=== PATIENT | female | born 1990 | race Caucasian/White ===

== ENCOUNTER 2019-10-24 15:19 | Emergency (ER) | payer OTHER ==
--- NOTE | 2019-10-24 16:17 | ED Physician Documentation ---
History of Present Illness - Stated complaint Stated Complaint: F - Chief complaint Chief Complaint: General - History obtained from History obtained from: Patient - History of Present Illness Timing: How many weeks ago (1) Pain level max: 0 Pain level now: 0 - Treatment prior to arrival Treatment prior to arrival: 29-year-old female presents to the emergency department stating that she has had vaginal discharge for the past week. Took Monistat without relief. She states that it is foul-smelling. Nothing makes it better or worse. No changes in sexual partners. She does have an IUD in place that she has had for approximately 5 years. She is having vaginal bleeding as well. States her LMP was 2 weeks ago and this is abnormal for her. Not having pelvic pain. No abdominal pain. No back pain. Review of Systems Constitutional: denies: Fever, Chills Nose: denies: Rhinorrhea / runny nose, Congestion Throat: denies: Sore throat GI: denies: Nausea, Vomiting, Diarrhea : denies: Dysuria, Frequency, Hesitancy Skin: denies: Rash Musculoskeletal: denies: Neck pain, Back pain Neurologic: denies: Headache PD PAST MEDICAL HISTORY - Past Medical History Past Medical History: No - Past Surgical History Past Surgical History: No - Present Medications Home Medications: Ambulatory Orders Medication Instructions Recorded Confirmed Benzonatate [Tessalon] 100 mg PO TID PRN #20 capsule 08/26/15 guaiFENesin/DEXTROMETHORPHAN 10 ml PO Q6H PRN #120 ml 08/26/15 [Robitussin Dm] Doxycycline Hyclate 100 mg PO BID #28 capsule 10/24/19 metroNIDAZOLE [Flagyl] 500 mg PO BID #14 tablet 10/24/19 - Allergies Allergies/Adverse Reactions: Allergies Allergy/AdvReac Type Severity Reaction Status Date / Time erythromycin base Allergy Hives Verified 10/24/19 15:30 - Living Situation Living Situation: reports: With family Living Arrangement: reports: At home - Social History Does the pt smoke?: No Does the pt have substance abuse?: No PD ED PE NORMAL - Vitals Vital signs reviewed: Yes - General General: Alert and oriented X 3, No acute distress, Well developed/nourished - HEENT HEENT: PERRL, Moist mucous membranes - Neck Neck: Supple, no meningeal sign - Cardiac Cardiac: RRR, Strong equal pulses - Respiratory Respiratory: No respiratory distress, Clear bilaterally - Abdomen Abdomen: Soft, Non tender, Non distended - Female 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 Normal-appearing cervix. No CMT. No masses.) - Back Back: No CVA TTP, No spinal TTP - Derm Derm: Warm and dry, No rash - Extremities Extremities: No edema - Neuro Neuro: Alert and oriented X 3 - Psych Psych: Normal mood, Normal affect Results - Vitals Vitals: Vital Signs - 24 hr 10/24/19 10/24/19 15:24 17:53 Temperature 37.3 C 37.2 C Heart Rate 68 54 L Respiratory 16 16 Rate Blood Pressure 117/54 L 123/96 H O2 Saturation 100 100 Oxygen O2 Source Room air - Labs Labs: Microbiology 10/24/19 16:18 Wet Prep - Final Genital - Vaginal Laboratory Tests 10/24/19 10/24/19 16:10 16:30 Urine Color YELLOW Urine Clarity CLEAR Urine pH 6.5 Ur Specific [place] <=1.005 Urine Protein NEGATIVE Urine Glucose (UA) NEGATIVE Urine Ketones NEGATIVE Urine Occult Blood TRACE-INTA Urine Nitrite NEGATIVE Urine Bilirubin NEGATIVE Urine Urobilinogen 0.2 (NORMAL) Ur Leukocyte Esterase NEGATIVE Ur Microscopic Review NOT INDICATED Urine Culture Comments NOT INDICATED Urine HCG, Qual NEGATIVE C. glabrata (PCR) NEGATIVE C. krusei (PCR) NEGATIVE Marzena species DNA NEGATIVE T. vaginalis (PCR) NEGATIVE Bact Vaginosis (PCR) POSITIVE A PD MEDICAL DECISION MAKING - ED course Complexity details: reviewed results, re-evaluated patient, considered differential, d/w patient ED course: Patient with what appears to be bacterial vaginitis. We will treat this with Flagyl. Concern for possible coinfection given her exam. Given Rocephin and doxycycline. She request that her IUD be removed. This was performed. She tolerated this well. She understands that she will need to use a backup method of control. The Mirena device that was removed has been in place for over 5 years already. Patient counseled regarding signs and symptoms for which I believe and urgent re-evaluation would be necessary. Patient with good understanding of and agreement to plan and is comfortable going home at this time This document was made in part using voice recognition software. While efforts are made to proofread this document, sound alike and grammatical errors may occur. Departure - Departure Disposition: 01 Home, Self Care Clinical Impression: Encounter for IUD removal, Vaginal discharge, Dysfunctional uterine bleeding, Bacterial vaginitis Condition: Good Instructions: ED Bleed Irregular Vaginal Follow-Up: Your,doctor in 1 week [Other] Prescriptions: Doxycycline Hyclate 100 mg PO BID #28 capsule metroNIDAZOLE [Flagyl] 500 mg PO BID #14 tablet Comments: Use the medications as prescribed. Return if you worsen. Follow-up with your doctor for further care. Your IUD was removed today. You will need to use another form of control so that you do not become . Discharge Date/Time: 10/24/19 18:04
[2019-10-24 16:36] LABS: BILIRUBIN,URINE NEGATIVE (NEGATIVE); CLARITY,URINE CLEAR (CLEAR); GLUCOSE, URINE (UA) NEGATIVE (NEGATIVE); KETONES,URINE (UA) NEGATIVE (NEGATIVE); LEUKOCYTE ESTERASE, URINE NEGATIVE (NEGATIVE); NITRITE,URINE NEGATIVE (NEGATIVE); OCCULT BLOOD,URINE TRACE-INTA (NEGATIVE); PH,URINE 6.5 PH (5.0-7.5); PROTEIN,URINE NEGATIVE (NEGATIVE); UROBILINOGEN,URINE 0.2 (NORMAL) E.U./dL (NORMAL)
[2019-10-24 16:37] LABS: HCG UR QUAL NEGATIVE
[2019-10-24] MEDS ORDERED: cefTRIAXone 250 MG VIAL IM STA (17:22)
[2019-10-24] MEDS ORDERED: DOXYCYCLINE 100 MG TABLET PO STA (17:22)
[2019-10-24] MEDS ORDERED: LIDOCAINE 1% 2 ML VIAL MC ONE (17:22)
[2019-10-24] MEDS ORDERED: metroNIDAZOLE 250 MG TABLET PO STA (17:22)
[2019-10-24 17:54] VITALS: BP 123/96
[2019-10-24 18:07] LABS: CANDIDA GROUP DNA NEGATIVE (NEGATIVE); CANDIDA KRUSEI DNA NEGATIVE (NEGATIVE); TRICHOMONAS VAGINALIS DNA NEGATIVE (NEGATIVE)
[2019-10-24 23:34] LABS: TRICHOMONAS VAGINALIS DNA UNRESOLVED (NEGATIVE)
== END 2019-10-24 18:04 | disposition home or self-care (01) ==
LOC: ED 15:19
DX: N76.0 Acute vaginitis (principal); N93.8 Other specified abnormal uterine and vaginal bleeding; Z30.432 Encounter for removal of intrauterine contraceptive device
CPT/HCPCS: 58301; 81003; 81025; 87210; 87481; 87491; 87591; 87661; 87801; 96372; 99283; 99284; A9270; 81001; 87086

== ENCOUNTER 2022-11-21 08:05 | Emergency (ER) | payer OTHER ==
[2022-11-21] MEDS ORDERED: ONDANSETRON ODT 4 MG TABLET TL STA (08:17)
[2022-11-21 09:02] LABS: BASOPHILS % (AUTO) 0.8 %; EOSINOPHILS # (AUTO) 0.1 10^3/uL (0.0-0.7); EOSINOPHILS % (AUTO) 1.7 %; HCT - HEMATOCRIT 39.6 % (37.0-47.0); HGB - HEMOGLOBIN 12.8 g/dL (12.0-16.0); LYMPHOCYTES # (AUTO) 1.7 10^3/uL (1.5-3.5); LYMPHOCYTES % (AUTO) 31.8 %; MEAN CORPUSCULAR HEMOGLOBIN 29.9 pg (27.0-31.0); MEAN CORPUSCULAR HGB CONC 32.3 g/dL (32.0-36.0); MEAN CORPUSCULAR VOLUME 92.5 fL (81.0-99.0); MEAN PLATELET VOLUME 9.6 fL (7.9-10.8); MONOCYTES # (AUTO) 0.4 10^3/uL (0.0-1.0); MONOCYTES % (AUTO) 6.6 %; NEUTROPHILS # (AUTO) 3.1 10^3/uL (1.5-6.6); NEUTROPHILS % (AUTO) 58.9 %; PLT - PLATELET COUNT 284 10^3/uL (130-450); RED BLOOD COUNT 4.28 10^6/uL (4.20-5.40); RED CELL DISTRIBUTION WIDTH 11.9 % (12.0-15.0); WHITE BLOOD COUNT 5.3 x10^3/uL (4.8-10.8)
[2022-11-21 09:04] LABS: BILIRUBIN,URINE NEGATIVE (NEGATIVE); GLUCOSE, URINE (UA) NEGATIVE (NEGATIVE); KETONES,URINE (UA) NEGATIVE (NEGATIVE); LEUKOCYTE ESTERASE, URINE NEGATIVE (NEGATIVE); NITRITE,URINE NEGATIVE (NEGATIVE); OCCULT BLOOD,URINE MODERATE (NEGATIVE); PROTEIN,URINE TRACE mg/dL (NEGATIVE); UROBILINOGEN,URINE 0.2 (NORMAL) E.U./dL (NORMAL)
[2022-11-21 09:06] LABS: CLARITY,URINE CLEAR (CLEAR)
[2022-11-21 09:12] LABS: BACTERIA,URINE Rare /HPF (None Seen); MUCUS,URINE Marked Strands; RBC,URINE TNTC /HPF (0-5); SQUAMOUS EPITHELIAL CELL,UR FEW Squamous (<= Few)
[2022-11-21 09:15] LABS: ALBUMIN 4.1 g/dL (3.2-5.5); ALBUMIN/GLOBULIN RATIO 1.4 (1.0-2.2); BILIRUBIN,TOTAL 0.5 mg/dL (0.2-1.0); CALCIUM 8.6 mg/dL (8.5-10.3); CREATININE 0.9 mg/dL (0.4-1.0); POTASSIUM 3.8 mmol/L (3.5-5.0)
[2022-11-21 09:20] LABS: HCG UR QUAL NEGATIVE
[2022-11-21] MEDS ORDERED: HYDROmorphone 1 MG/ML CARPUJECT IVP STA (09:24)
--- NOTE | 2022-11-21 09:53 | ED Physician Documentation ---
PD HPI ABD PAIN - Stated complaint Stated Complaint: ABD/BACK PX - Chief complaint Chief Complaint: Abd Pain - History obtained from History obtained from: Patient - Additional information Additional information: The patient comes to the emergency department with chief complaint of right flank pain that began around 6:00 this morning when she woke up. The patient states that she did not notice any bright red blood in the toilet when she urinated and has not had any dysuria, but does have a constant sense of needing to urinate did only going small amounts at a time. She states she felt fine when she went to bed last night. No history of kidney stones. No surgeries on her abdomen. She is currently breast-feeding and has an IUD, does not believe she is . She has not had a period of months. The patient denies any fevers or chills. She states that she has been very nauseated but did not vomit until she got here to the ED. However, she states that ever since vomiting she feels much better. No other complaints at this time. PD PAST MEDICAL HISTORY - Past Surgical History Past Surgical History: No - Allergies Allergies/Adverse Reactions: Allergies Allergy/AdvReac Type Severity Reaction Status Date / Time erythromycin base Allergy Hives Verified 11/21/22 08:12 - Social History Does the pt smoke?: No Smoking Status: Never smoker Does the pt have substance abuse?: No PD ED PE NORMAL - Vitals Vital signs reviewed: Yes - General General: Alert and oriented X 3, No acute distress, Well developed/nourished, Other (The patient appears mildly uncomfortable but otherwise no apparent distress) - HEENT HEENT: Atraumatic, PERRL, EOMI, Moist mucous membranes - Neck Neck: Supple, no meningeal sign - Cardiac Cardiac: RRR, No murmur - Respiratory Respiratory: No respiratory distress, Clear bilaterally - Abdomen Abdomen: Soft, Non distended, Other (Diffuse mild tenderness of lower abdomen, nonfocal otherwise.) - Derm Derm: Normal color, Warm and dry, No rash - Extremities Extremities: No deformity - Neuro Neuro: Alert and oriented X 3 - Psych Psych: Normal mood, Normal affect Results - Vitals Vitals: Oxygen O2 Source Room air - Labs Labs: Laboratory Tests 11/21/22 11/21/22 11/21/22 08:42 08:42 08:45 WBC 5.3 RBC 4.28 Hgb 12.8 Hct 39.6 MCV 92.5 MCH 29.9 MCHC 32.3 RDW 11.9 L Plt Count 284 MPV 9.6 Neut # (Auto) 3.1 Lymph # (Auto) 1.7 [place] # (Auto) 0.4 Eos # (Auto) 0.1 Baso # (Auto) 0.0 Absolute Nucleated RBC 0.00 Nucleated RBC % 0.0 Sodium 145 Potassium 3.8 Chloride 105 Carbon Dioxide 25 Anion Gap 15.0 H BUN 16 Creatinine 0.9 Estimated GFR (MDRD) 72 L Glucose 114 H Calcium 8.6 Total Bilirubin 0.5 AST 16 ALT 13 Alkaline Phosphatase 72 Total Protein 7.0 Albumin 4.1 Globulin 2.9 Albumin/Globulin Ratio 1.4 Lipase 34 Urine Color YELLOW Urine Clarity CLEAR Urine pH 5.0 Ur Specific [place] >=1.030 H Urine Protein TRACE Urine Glucose (UA) NEGATIVE Urine Ketones NEGATIVE Urine Occult Blood MODERATE H Urine Nitrite NEGATIVE Urine Bilirubin NEGATIVE Urine Urobilinogen 0.2 (NORMAL) Ur Leukocyte Esterase NEGATIVE Urine RBC TNTC H Urine WBC 6-10 H Ur Squamous Epith Cells FEW Squamous Urine Bacteria Rare Urine Mucus Marked Strands Ur Microscopic Review INDICATED Urine Culture Comments NOT INDICATED Urine HCG, Qual 11/21/22 08:45 WBC RBC Hgb Hct MCV MCH MCHC RDW Plt Count MPV Neut # (Auto) Lymph # (Auto) [place] # (Auto) Eos # (Auto) Baso # (Auto) Absolute Nucleated RBC Nucleated RBC % Sodium Potassium Chloride Carbon Dioxide Anion Gap BUN Creatinine Estimated GFR (MDRD) Glucose Calcium Total Bilirubin AST ALT Alkaline Phosphatase Total Protein Albumin Globulin Albumin/Globulin Ratio Lipase Urine Color Urine Clarity Urine pH Ur Specific [place] Urine Protein Urine Glucose (UA) Urine Ketones Urine Occult Blood Urine Nitrite Urine Bilirubin Urine Urobilinogen Ur Leukocyte Esterase Urine RBC Urine WBC Ur Squamous Epith Cells Urine Bacteria Urine Mucus Ur Microscopic Review Urine Culture Comments Urine HCG, Qual NEGATIVE - Rads (name of study) CT abdomen and pelvis Relevant Findings:: Final report received, See rad report (Mild dilatation and of right ureter and right hydronephrosis. Distal ureter not well visualized, could be a small stone or recently passed stone.) PD Medical Decision Making - ED course Complexity details: reviewed results, re-evaluated patient, considered differential, d/w patient ED course: The patient was feeling somewhat better, but was treated with Zofran and IV fluids in the emergency department. I had offered Dilaudid but she declined narcotics. I had considered ordering Toradol, but did withhold until patient's test came back negative. The patient was worked up with laboratory studies, which were unremarkable, and a urinalysis, which showed hematuria but no infection. She was sent for CT scan of the abdomen and pelvis without contrast. The patient reported feeling much better after vomiting and continued to feel better, pain [place]. Her CT showed some dilatation in the ureter on the right, as well as some hydronephrosis and I suspected that the patient had just passed or was in the process of passing a kidney stone distally. We have discus sed symptomatic management at home. The patient's actually feeling quite well now and I feel she is stable for discharge. I have prescribed pain and nausea medication in case the pain recurs. We have discussed the usual indications for follow-up and return. Departure - Departure Disposition: 01 Home, Self Care Clinical Impression: Kidney stone Condition: Stable Instructions: ED Stone Renal W Colic Comments: Your urinalysis showed some blood but no infection, and your blood work looked good. Your CT scan showed that your right ureter was dilated and most likely, had a recent passage of the stone. It appears you have probably already urinated the stone out, as this was not visualized in your bladder. Please follow-up with your doctor as needed. There are no obvious stones left in either of your kidneys, though there is a possibility of forming them again sometime in the future. If you get the symptoms again, please do not hesitate to return to the emergency department. Discharge Date/Time: 11/21/22 11:40
--- NOTE | 2022-11-21 10:31 | CT Report ---
PROCEDURE: ABDOMEN/PELVIS WO INDICATIONS: R flank pain TECHNIQUE: Noncontrast 5 mm thick sections acquired from the diaphragms to the symphysis. 5 mm coronal and sagi ttal reformats were then performed. For radiation dose reduction, the following was used: automated exposure control, adjustment of mA and/or kV according to patient size. COMPARISON: None. FINDINGS: Image quality: Excellent. Lung bases and heart: Unremarkable. Liver: No solid mass. Gallbladder and biliary tree: Is within normal limits Spleen: No splenomegaly. Pancreas: No pancreatic ductal dilation. Adrenals: No adrenal nodule. Kidneys and ureters: Mild right hydronephrosis. Mild right ureteral dilatation. Nonobstructing 2 mm c alcification within the superior pole left kidney. No renal cystic lesion which requires follow up. N o solid mass. Bowel and peritoneum: No bowel distension. No pathologic free fluid. Normal appendix. Lymph nodes: No central or retroperitoneal adenopathy. Vessels: No infrarenal aortic aneurysm. PELVIS Reproductive organs: Intrauterine device. Bladder: No abnormal wall thickening, accounting for underdistension. Distal right ureter is not well seen but there are several small to-4 mm diameter calcifications within the right hemipelvis which c ould be within the distal right ureter. Pelvic lymph nodes: No pelvic adenopathy by size criteria. Bones: No aggressive osseous abnormality. Other: No significant ventral or inguinal hernia. IMPRESSION: 1. Mild right hydronephrosis and right ureteral dilatation. 2. Nonvisualization of the distal right ureter. Several right pelvic calcifications are present, whic h could represent distal ureteral calculi. 3. Not affecting left renal calculus. 4. Normal appendix. Reviewed by: Erik Somers MD on 11/21/2022 9:30 AM [facility] Approved by: Erik Somers MD on 11/21/2022 9:30 AM [facility] Station ID: [id number]
[2022-11-21] MEDS ORDERED: SODIUM CHLORIDE 0.9% 1,000 ML IV ONE (10:42)
[2022-11-21] MEDS ORDERED: SODIUM CHLORIDE 0.9% 1,000 ML IV STA (11:15)
[2022-11-21 11:40] VITALS: BP 94/57
== END 2022-11-21 11:40 | disposition home or self-care (01) ==
LOC: ED 08:05
DX: N13.2 Hydronephrosis with renal and ureteral calculous obstruction (principal)
CPT/HCPCS: 36415; 74176; 80053; 81001; 81025; 83690; 85025; 99284; Q0162; 81003; 87086

== ENCOUNTER 2023-01-31 11:44 | Emergency (ER) | payer OTHER ==
[2023-01-31 12:16] LABS: BASOPHILS # (AUTO) 0.1 10^3/uL (0.0-0.1); BASOPHILS % (AUTO) 0.4 %; EOSINOPHILS % (AUTO) 0.1 %; HCT - HEMATOCRIT 39.9 % (37.0-47.0); LYMPHOCYTES # (AUTO) 0.9 10^3/uL (1.5-3.5); LYMPHOCYTES % (AUTO) 6.7 %; MEAN CORPUSCULAR HEMOGLOBIN 30.2 pg (27.0-31.0); MEAN CORPUSCULAR HGB CONC 32.6 g/dL (32.0-36.0); MEAN CORPUSCULAR VOLUME 92.6 fL (81.0-99.0); MEAN PLATELET VOLUME 9.2 fL (7.9-10.8); MONOCYTES # (AUTO) 0.8 10^3/uL (0.0-1.0); MONOCYTES % (AUTO) 5.8 %; NEUTROPHILS # (AUTO) 11.7 10^3/uL (1.5-6.6); NEUTROPHILS % (AUTO) 86.6 %; PLT - PLATELET COUNT 291 10^3/uL (130-450); RED BLOOD COUNT 4.31 10^6/uL (4.20-5.40); WHITE BLOOD COUNT 13.6 x10^3/uL (4.8-10.8)
[2023-01-31 12:42] LABS: ALBUMIN 4.5 g/dL (3.2-5.5)
[2023-01-31 12:54] LABS: CALCIUM 12.1 mg/dL (8.5-10.3)
[2023-01-31 13:22] LABS: ALBUMIN/GLOBULIN RATIO 1.7 (1.0-2.2); BILIRUBIN,TOTAL 0.6 mg/dL (0.2-1.0); CREATININE 0.9 mg/dL (0.6-1.3); POTASSIUM 4.3 mmol/L (3.5-4.5); TOTAL PROTEIN 7.2 g/dL (6.4-8.9)
[2023-01-31 13:27] LABS: BILIRUBIN,URINE NEGATIVE (NEGATIVE); GLUCOSE, URINE (UA) NEGATIVE (NEGATIVE); KETONES,URINE (UA) 15 mg/dL (NEGATIVE); LEUKOCYTE ESTERASE, URINE NEGATIVE (NEGATIVE); NITRITE,URINE NEGATIVE (NEGATIVE); OCCULT BLOOD,URINE MODERATE (NEGATIVE); PROTEIN,URINE TRACE mg/dL (NEGATIVE); UROBILINOGEN,URINE 0.2 (NORMAL) E.U./dL (NORMAL)
[2023-01-31 13:28] LABS: CLARITY,URINE CLOUDY (CLEAR)
[2023-01-31 13:29] LABS: HCG UR QUAL NEGATIVE
--- NOTE | 2023-01-31 13:31 | ED Physician Documentation ---
History of Present Illness - Stated complaint Stated Complaint: MID RIGHT BACK PX,PELVIC PX - Chief complaint Chief Complaint: General - Additonal information Additional information: Very uncomfortable appearing 32-year-old woman presents emergency department for evaluation of acute right flank and lower abdominal pain that began this morning. She has had no fevers some nausea but no vomiting. No diarrhea. Denies any dysuria urgency or frequency. No chest pain or shortness of air. She is writhing in the bed uncomfortable due to the pain. States that she passed a kidney stone several months ago which was on the right side but this feels completely different. Nursing staff alerted me that the patient had an elevated serum calcium of 12.1 on labs obtained in the emergency department. No previous history of hypercalcemia. Patient takes no prescribed medications. Review of Systems Constitutional: denies: Fever, Chills Throat: reports: Reviewed and negative Cardiac: reports: Reviewed and negative Respiratory: reports: Reviewed and negative GI: reports: Abdominal Pain, Nausea. denies: Vomiting : reports: Reviewed and negative PD PAST MEDICAL HISTORY - Past Surgical History Past Surgical History: No - Present Medications Home Medications: Ambulatory Orders Medication Instructions Recorded Confirmed Tamsulosin HCl [Flomax] 0.4 mg PO DAILY #30 cap 01/31/23 oxyCODONE [Roxicodone] 5 mg PO TID PRN #20 tablet 01/31/23 - Allergies Allergies/Adverse Reactions: Allergies Allergy/AdvReac Type Severity Reaction Status Date / Time erythromycin base Allergy Hives Verified 11/21/22 08:12 - Social History Does the pt smoke?: No Smoking Status: Never smoker Does the pt have substance abuse?: No PD ED PE NORMAL - General General: Alert and oriented X 3. No: No acute distress (Appears in pain and uncomfortable.) - HEENT HEENT: PERRL - Neck Neck: Supple, no meningeal sign, No adenopathy - Cardiac Cardiac: RRR, No murmur - Respiratory Respiratory: No respiratory distress, Clear bilaterally - Abdomen Abdomen: Normal bowel sounds, Soft. No: Non tender (Positive right CVA and flank tenderness. Some right lower quadrant tenderness though nonperitoneal.) - Derm Derm: Normal color, Warm and dry, No rash - Extremities Extremities: No deformity - Neuro Neuro: Alert and oriented X 3, blueprint blocker 2-12 intact Eye Opening: Spontaneous Motor: Obeys Commands Verbal: Oriented GCS Score: 15 Results - Vitals Vitals: Vital Signs - 24 hr 01/31/23 11:57 Temperature 37.4 C Heart Rate 78 Respiratory 20 Rate Blood Pressure 124/63 O2 Saturation 100 Oxygen O2 Source Room air - EKG (time done) 1325 EKG releavant findings:: EKG personally interpreted by author of this note. Relevant findings are: Rate: Rate (enter#) (61) Rhythm: NSR Rena Lara: Normal Intervals: Normal UT QRS: Normal Ischemia: Normal ST segments Compare to prior EKG: Old EKG unavailable Computer interpretation: Agree with computer - Labs Labs: Laboratory Tests 01/31/23 01/31/23 01/31/23 12:10 12:12 12:12 WBC 13.6 H RBC 4.31 Hgb 13.0 Hct 39.9 MCV 92.6 MCH 30.2 MCHC 32.6 RDW 12.0 Plt Count 291 MPV 9.2 Neut # (Auto) 11.7 H Lymph # (Auto) 0.9 L [place] # (Auto) 0.8 Eos # (Auto) 0.0 Baso # (Auto) 0.1 Absolute Nucleated RBC 0.00 Nucleated RBC % 0.0 Sodium 138 Potassium 4.3 Chloride 107 Carbon Dioxide 26 Anion Gap 5.0 L BUN 15 Creatinine 0.9 Estimated GFR (MDRD) 72 L Glucose 93 Calcium 12.1 H* Phosphorus Magnesium Total Bilirubin 0.6 AST 13 ALT 9 L Alkaline Phosphatase 70 Total Protein 7.2 Albumin 4.5 Globulin 2.7 Albumin/Globulin Ratio 1.7 Lipase 25 Urine Color YELLOW Urine Clarity CLOUDY Urine pH 5.0 Ur Specific [place] >=1.030 H Urine Protein TRACE Urine Glucose (UA) NEGATIVE Urine Ketones 15 H Urine Occult Blood MODERATE H Urine Nitrite NEGATIVE Urine Bilirubin NEGATIVE Urine Urobilinogen 0.2 (NORMAL) Ur Leukocyte Esterase NEGATIVE Urine RBC 6-10 H Urine WBC 0-3 Ur Squamous Epith Cells RARE Squamous Amorphous Sediment Marked Urine Bacteria Rare Ur Microscopic Review INDICATED Urine Culture Comments NOT INDICATED Urine HCG, Qual NEGATIVE 01/31/23 15:46 WBC RBC Hgb Hct MCV MCH MCHC RDW Plt Count MPV Neut # (Auto) Lymph # (Auto) [place] # (Auto) Eos # (Auto) Baso # (Auto) Absolute Nucleated RBC Nucleated RBC % Sodium 137 Potassium 4.3 Chloride 111 Carbon Dioxide 23 Anion Gap 3.0 L BUN 14 Creatinine 0.8 Estimated GFR (MDRD) 83 L Glucose 72 L Calcium 8.3 L Phosphorus 3.2 L Magnesium 1.5 L Total Bilirubin AST ALT Alkaline Phosphatase Total Protein Albumin Globulin Albumin/Globulin Ratio Lipase Urine Color Urine Clarity Urine pH Ur Specific [place] Urine Protein Urine Glucose (UA) Urine Ketones Urine Occult Blood Urine Nitrite Urine Bilirubin Urine Urobilinogen Ur Leukocyte Esterase Urine RBC Urine WBC Ur Squamous Epith Cells Amorphous Sediment Urine Bacteria Ur Microscopic Review Urine Culture Comments Urine HCG, Qual - Rads (name of study) CT abd Relevant Findings:: Final report received (Right-sided distal ureter stone 4 mm calculus just proximal to the UVJ resulting in severe right hydroureteronephrosis increased from CT in 11/21/2022. Nonobstructing 2 mm left renal calculus) PD Medical Decision Making - ED course Complexity details: reviewed results, re-evaluated patient, d/w patient ED course: 29-year-old female presents emergency department for evaluation of sudden severe acute right-sided low back pain and anterior abdominal pain. She was seen in this ED about 2 months ago thought to have renal colic at that time though CT scan imaging was negative. On presentation she was alert to though appeared very uncomfortable. Pain was elicited along the right flank and lower quadrant of the abdomen. I initially ordered CBC, electrolytes and urinalysis. Per my interpretation CBC showed mild leukocytosis with white count of 13.7 thousand. Her electrolytes showed an elevated calcium of 12.1. She did have normal renal function. PTH level is pending. Magnesium and phosphorus were also evaluated and found to be marginally low. In order to help correct the calcium patient was administered 2 L of IV fluid here in the emergency department. On reevaluation and recheck of her BMP the calcium has reduced to 8.3. At no point did the patient have fevers, muscle rigidity or altered mental status. Subsequently a CT of the abdomen Was completed which showed a 4 mm stone at the right UVJ showing moderate to severe hydroureteronephrosis. Urinalysis was not consistent with infection. I briefly discussed this case with Dr. Onur Robertson the urologist associated with [facility]. He would like to see the patient in clinic. In the interim he recommends Flomax and a urine strainer. I discussed labs and imaging findings with patient and her at the bedside. They recommended follow closely with her PCP. They will follow-up the PTH when it becomes available in a few days. I also recommended that the labs be rechecked this week to ensure no worrisome hypercalcemia. They will obtain referral to urology. I am prescribing a short course of short-acting opioid pain medication for this patient. I have reviewed the patients [employer] and no concerning findings were noted. I have discussed that the opioids are for short term therapy only, and will not be refilled from the ED. Departure - Departure Disposition: 01 Home, Self Care Clinical Impression: Hypercalcemia, Hydroureteronephrosis, Calculus of ureterovesical junction (UVJ) Condition: Stable Instructions: ED Stone Renal W Colic Follow-Up: Onur Robertson MD [Provider Admit Priv/Credential] - Prescriptions: Tamsulosin HCl [Flomax] 0.4 mg PO DAILY #30 cap oxyCODONE [Roxicodone] 5 mg PO TID PRN #20 tablet PRN Reason: Pain Comments: Letty, you are seen today for right-sided abdominal pain. The CT scan shows that you have a 4 mm stone causing obstruction at the UVJ junction. This is causing your ureter and kidney to swell. In order to help the stone pass I am starting you on a medication called Flomax. You should take this each day until you are seen by your urologist. Please urinate into the hat and if you pass any stones keep them in the cup so they may be tested later. Your labs today showed an elevated calcium of 12.1. A lab called a parathyroid hormone level is pending and we will not have these results back today. It is critical that you follow closely with your primary care doctor. Elevated calcium levels could certainly be causing your kidney stones and further treatme nt may be necessary with regards to your hormone levels in order to help prevent recurrence in the future. Your labs should be rechecked this week. Please ask for an urgent referral to urology. I have given you the name of Dr. Robertson a urologist that practices here at [facility]. In general I recommend he take Tylenol and ibuprofen [id number] for discomfort. For more severe pain a limited prescription of oxycodone has been sent to the [facility] in [place]. Return immediately to the ER for fevers, stiff muscles, changes in mental status, uncontrolled vomiting or pain. Forms: PCP List
[2023-01-31] MEDS ORDERED: HYDROmorphone 1 MG/ML CARPUJECT IVP STA (13:36)
[2023-01-31] MEDS ORDERED: SODIUM CHLORIDE 0.9% 1,000 ML IV STA ×2 (13:37)
[2023-01-31 13:51] LABS: AMORPHOUS SEDIMENT,UR Marked /LPF; BACTERIA,URINE Rare /HPF (None Seen); SQUAMOUS EPITHELIAL CELL,UR RARE Squamous (<= Few); WBC,URINE 0-3 /HPF (0-5)
[2023-01-31] MEDS ORDERED: KETOROLAC 30 MG/ML VIAL IVP STA (14:14)
--- NOTE | 2023-01-31 15:15 | CT Report ---
PROCEDURE: ABDOMEN/PELVIS W INDICATIONS: acute right flank pain CONTRAST: 100mL Omni 300 TECHNIQUE: After the administration of intravenous contrast, 5 mm thick sections acquired from the diaphragms to the symphysis. 5 mm thick coronal and sagittal reformats were acquired. For radiation dose reducti on, the following was used: automated exposure control, adjustment of mA and/or kV according to gilberto ent size. COMPARISON: CT abdomen/pelvis 11/21/2022 FINDINGS: Image quality: Excellent. Lung bases and heart: Unremarkable. Liver: No solid mass. Gallbladder and biliary tree: No radiopaque stones or wall thickening. No biliary dilation. Spleen: No splenomegaly. Pancreas: No pancreatic ductal dilation. Adrenals: No adrenal nodule. Kidneys and ureters: 4 mm right distal ureteral calcification just proximal to the ureterovesicular j unction, unchanged compared to the CT from 11/21/2022. There is moderate to severe right hydroureteron ephrosis that appears to have increased. Findings a 2 mm calculus is seen at the superior pole of the left kidney without hydronephrosis. Bowel and peritoneum: No bowel distension. No pathologic free fluid. Lymph nodes: No central or retroperitoneal adenopathy. Vessels: No infrarenal aortic aneurysm. PELVIS Reproductive organs: Intrauterine device is seen in expected position. Bladder: No abnormal wall thickening, accounting for underdistension. Pelvic lymph nodes: No pelvic adenopathy by size criteria. Bones: No aggressive osseous abnormality. Other: No significant ventral or inguinal hernia. IMPRESSION: 1.Right distal ureteral 4 mm calculus just proximal to the ureterovesicular junction resulting in mod erate to severe right hydroureteronephrosis, which has increased when compared to the CT from 11/22/19 23. 2.Nonobstructing 2 mm left renal calculus. Reviewed by: Jamie Montgomery MD on 01/31/2023 3:14 PM PDT Approved by: Jamie Montgomery MD on 01/31/2023 3:14 PM PDT Station ID: [id number]
[2023-01-31] MEDS ORDERED: TAMSULOSIN 0.4 MG CAPSULE PO STA (15:27)
[2023-01-31 16:13] LABS: CALCIUM 8.3 mg/dL (8.5-10.3); CREATININE 0.8 mg/dL (0.6-1.3); MAGNESIUM 1.5 mg/dL (1.7-2.3); PHOSPHORUS 3.2 mg/dL (3.7-7.2); POTASSIUM 4.3 mmol/L (3.5-4.5)
[2023-01-31 16:33] LABS: CALCIUM, IONIZED 1.12 mmol/L (1.15-1.33); VBG PH 7.29 (7.31-7.41)
[2023-01-31 16:36] VITALS: BP 97/58
[2023-01-31] MEDS ORDERED: iohexoL-300 100 ML VIAL IVP ONE (19:28)
== END 2023-01-31 16:39 | disposition home or self-care (01) ==
LOC: ED 11:44
DX: E83.52 Hypercalcemia (principal); N13.2 Hydronephrosis with renal and ureteral calculous obstruction
CPT/HCPCS: 36415; 74177; 80048; 80053; 81001; 81025; 82330; 83690; 83735; 83970; 84100; 85025; 93005; 96361; 96374; 99284; A9270; J1170; Q9967; 81003; 87086